=== PATIENT | female | born 1950 | race Hispanic/Latino ===

== ENCOUNTER 2018-02-14 00:49 | Emergency (ER) | payer OTHER ==
[2018-02-14] MEDS ORDERED: ACETAMINOPHEN EXTRA STRENGTH 500 MG TABLET ONE (01:14)
== END 2018-02-14 02:01 | disposition home or self-care (01) ==
LOC: EDH 00:49
DX: S09.8XXA Other specified injuries of head, initial encounter (principal); D32.9 Benign neoplasm of meninges, unspecified; R03.0 Elevated blood-pressure reading, without diagnosis of hypertension; E07.9 Disorder of thyroid, unspecified; W18.39XA Other fall on same level, initial encounter; Y93.89 Activity, other specified; Y92.89 Other specified places as the place of occurrence of the external cause; Y99.8 Other external cause status
CPT/HCPCS: 70450

== ENCOUNTER 2023-08-15 00:16 | Observation (INO) | payer OTHER ==
[~2023-08-15] VITALS: Ht 142.2 cm; Wt 47.0 kg
[2023-08-15] VITALS (28 sets, daily range): BP systolic 130–162; BP diastolic 57–82; PULSE 60–90; RESP 16–20; O2SAT 96–97
[2023-08-15 00:48] LABS: BASOPHILS # (AUTO) 0.04 K/uL (0.00-0.20); BASOPHILS % (AUTO) 0.3 % (0.0-5.0); EOSINOPHILS # (AUTO) 0.03 K/uL (0.00-0.70); EOSINOPHILS % (AUTO) 0.2 % (0.0-8.0); HEMATOCRIT 47.6 % (36-48); IMMATURE GRANULOCYTE ABSOLUTE 0.05 K/uL (0-1); LYMPHOCYTES # (AUTO) 0.5 K/uL (1.0-4.8); LYMPHOCYTES % (AUTO) 3.4 % (21.0-51.0); MEAN CORPUSCULAR HEMOGLOBIN 26.3 pg (27.0-33.0); MEAN CORPUSCULAR HGB CONC 31.9 g/dL (32.0-36.0); MEAN CORPUSCULAR VOLUME 82.4 fL (79-99); MONOCYTES # (AUTO) 0.5 K/uL (0.1-1.0); MONOCYTES % (AUTO) 3.5 % (3.0-13.0); NEUTROPHILS # (AUTO) 13.2 K/uL (1.8-7.7); NEUTROPHILS % (AUTO) 92.3 % (40.0-77.0); PLATELET COUNT (AUTO) 253 K/uL (130-400); RED BLOOD CELL COUNT(AUTO) 5.78 MIL/uL (4.00-5.50); RED CELL DISTRIBUTION WIDTH 14.9 % (11.0-15.5); WHITE BLOOD COUNT (AUTO) 14.3 K/uL (4.8-10.8)
[2023-08-15 00:58] LABS: CREATININE 0.9 mg/dL (0.5-1.5); POTASSIUM 4.2 mmol/L (3.5-5.1); WBC MORPHOLOGY CONSISTENT W/DIFF
[2023-08-15] MEDS ORDERED: 0.9%NACL 1000ML 2,000 ML IV ONE (01:00)
[2023-08-15] MEDS ORDERED: ONDANSETRON 4MG INJ IVP ONE (01:00)
[2023-08-15 01:03] LABS: BILIRUBIN,TOTAL 0.5 mg/dL (0.2-1.0); TOTAL PROTEIN, SERUM 8.2 g/dL (6.0-8.3)
[2023-08-15] MEDS ORDERED: IOHEXOL-350 75 ML VIAL IV ONE (01:09)
[2023-08-15] MEDS ORDERED: MORPHINE 2 MG SYG IVP ONE (02:30)
[2023-08-15] MEDS ORDERED: ZOSYN 3.375GM +NS 50ML IV ONE (02:30)
[2023-08-15 02:54] LABS: APPEARANCE,URINE CLEAR (CLEAR); BILIRUBIN,URINE NEGATIVE (NEGATIVE); COLOR,URINE LIGHT-YELLOW (YELLOW); GLUCOSE, URINE (UA) NEGATIVE (NEGATIVE); KETONES,URINE NEGATIVE (NEGATIVE); LEUKOCYTE ESTERASE ,URINE NEGATIVE Leu/uL (NEGATIVE); NITRATE,URINE 2+ (NEGATIVE); OCCULT BLOOD,URINE NEGATIVE (NEGATIVE); PH,URINE 6.5 (5.0-8.0); PROTEIN,URINE NEGATIVE (NEGATIVE); UROBILINOGEN,URINE 0.2 mg/dL (0.2-1.0)
[2023-08-15 02:56] LABS: ADD UA MICROSCOPIC YES
[2023-08-15 02:57] LABS: BACTERIA,URINE MOD /HPF (None Seen); MUCUS,URINE RARE LPF (None Seen); OTHER CASTS, URINE 1 /LPF (None Seen); SQUAMOUS EPITHELIAL CELL,UR RARE /HPF (0-2)
[2023-08-15] MEDS ORDERED: ACETAMINOPHEN 650 MG SUPPOSITORY RC PRN (04:00)
[2023-08-15] MEDS ORDERED: CLONIDINE HCL 0.1 MG TABLET PO PRN (04:00)
[2023-08-15] MEDS ORDERED: TEMAZEPAM 15 MG CAPSULE PO PRN (04:00)
[2023-08-15] MEDS ORDERED: HYDRALAZINE 20MG/ML VIAL IV PRN (04:00)
[2023-08-15] MEDS ORDERED: ONDANSETRON 4MG INJ IVP PRN ×2 (04:00→12:00)
[2023-08-15] MEDS ORDERED: MORPHINE 4 MG SYG IVP PRN (04:00)
[2023-08-15] MEDS ORDERED: LABETALOL 20MG SYG IV PRN (04:00)
[2023-08-15] MEDS ORDERED: ACETAMINOPHEN 325 MG TAB PO PRN (04:00)
[2023-08-15] MEDS: LACTATED RINGERS 1000ML 1,000 ML IV SCH ×3 (05:01→17:20)
[2023-08-15] MEDS: INSULIN HUMULIN R 100 UNIT/ML 3ML SQ SCH ×2 (06:06→11:30)
[2023-08-15 07:00] LABS: INR 0.94 (0.85-1.15); PROTHROMBIN TIME 10.9 SEC (9.6-11.6)
[2023-08-15] MEDS: ZOSYN 3.375GM +NS 50ML IV SCH ×2 (08:20→17:38)
[2023-08-15] MEDS ORDERED: LIDOCAINE PF 100MG/5ML (2%) SYRINGE 5ML ONE (10:41)
[2023-08-15] MEDS ORDERED: MIDAZOLAM HCL 1 MG/ML 2ML VIAL ONE (10:42)
[2023-08-15] MEDS ORDERED: FENTANYL CITRATE PF 50 MCG/1 ML 2ML VIAL ONE (10:42)
[2023-08-15] MEDS ORDERED: DEXAMETHASONE SOD PHOSPHATE 4 MG/ML 1ML VIAL ONE (10:42)
[2023-08-15] MEDS ORDERED: PROPOFOL 10 MG/ML 20ML VIAL IV ONE (10:42)
[2023-08-15] MEDS ORDERED: ROCURONIUM 10MG/1ML SYR 10 MG/ML ML ONE (10:42)
[2023-08-15] MEDS ORDERED: ONDANSETRON 4MG INJ ONE (10:43)
[2023-08-15] MEDS ORDERED: ROPIVACAINE 0.5% 5MG/ML 30ML ONE (10:46)
[2023-08-15] MEDS ORDERED: BUPIVACAINE/PF 0.25% 30ML VIAL IJ ONE ×2 (11:01→11:02)
[2023-08-15] MEDS ORDERED: GLYCOPYRROLATE 1 MG/5 ML SYRINGE ONE (11:32)
[2023-08-15] MEDS ORDERED: NEOSTIGMINE 5MG/5ML SYR IV ONE (11:32)
[2023-08-15] MEDS ORDERED: TRAM50TA4 PO (11:44)
[2023-08-15] MEDS ORDERED: HYDROCODONE/ACETAMINOPHEN 5/325 MG TAB PO PRN (12:00)
[2023-08-15] MEDS ORDERED: MORPHINE 2 MG SYG IV PRN (12:00)
[2023-08-15] MEDS ORDERED: BISACODYL 10 MG SUPP.RECT RC ONE (12:30)
[2023-08-15] MEDS ORDERED: POLYETHYLENE GLYCOL 3350 17 GM POWD.PACK PO ONE (12:45)
[2023-08-15] MEDS ORDERED: PRAV20TA4 PO (15:45)
[2023-08-15] MEDS ORDERED: LEVO50TA11 PO (15:45)
[2023-08-15] MEDS ORDERED: FAMOTIDINE 20MG VIAL IV SCH (21:00)
[2023-08-15] MEDS ORDERED: ATORVASTATIN 20 MG TABLET PO SCH (21:00)
[2023-08-16] MEDS: ZOSYN 3.375GM +NS 50ML IV SCH ×2 (01:29→08:44)
[2023-08-16] MEDS: LACTATED RINGERS 1000ML 1,000 ML IV SCH ×2 (01:30→06:40)
[2023-08-16 04:00] VITALS: BP 127/67; PULSE 66; RESP 18
[2023-08-16 04:37] LABS: BASOPHILS # (AUTO) 0.01 K/uL (0.00-0.20); BASOPHILS % (AUTO) 0.1 % (0.0-5.0); EOSINOPHILS # (AUTO) 0.01 K/uL (0.00-0.70); EOSINOPHILS % (AUTO) 0.1 % (0.0-8.0); HEMATOCRIT 36.8 % (36-48); IMMATURE GRANULOCYTE ABSOLUTE 0.07 K/uL (0-1); LYMPHOCYTES # (AUTO) 0.6 K/uL (1.0-4.8); LYMPHOCYTES % (AUTO) 6.2 % (21.0-51.0); MEAN CORPUSCULAR HEMOGLOBIN 26.3 pg (27.0-33.0); MEAN CORPUSCULAR HGB CONC 32.1 g/dL (32.0-36.0); MONOCYTES # (AUTO) 0.6 K/uL (0.1-1.0); MONOCYTES % (AUTO) 6.3 % (3.0-13.0); NEUTROPHILS # (AUTO) 8.5 K/uL (1.8-7.7); NEUTROPHILS % (AUTO) 86.6 % (40.0-77.0); PLATELET COUNT (AUTO) 189 K/uL (130-400); RED BLOOD CELL COUNT(AUTO) 4.49 MIL/uL (4.00-5.50); RED CELL DISTRIBUTION WIDTH 15.2 % (11.0-15.5); WHITE BLOOD COUNT (AUTO) 9.8 K/uL (4.8-10.8)
[2023-08-16 04:54] LABS: ALBUMIN 2.4 g/dL (3.5-5.0); BILIRUBIN,TOTAL 0.6 mg/dL (0.2-1.0); CREATININE 0.7 mg/dL (0.5-1.5); PHOSPHORUS 3.4 mg/dL (2.5-4.9); POTASSIUM 3.8 mmol/L (3.5-5.1); TOTAL PROTEIN, SERUM 5.8 g/dL (6.0-8.3)
[2023-08-16 05:17] LABS: SARS-CoV-2, RNA, NAAT NEGATIVE SARS CoV-2 (NEGATIVE)
[2023-08-16 05:22] LABS: INFLUENZA TYPE A Negative For Type A (NEGATIVE); INFLUENZA TYPE B Negative For Type B (NEGATIVE)
[2023-08-16] MEDS ORDERED: LEVOTHYROXINE 50 MCG TABLET PO SCH (06:30)
[2023-08-16 07:53] VITALS: BP 126/61; PULSE 69; RESP 17
[2023-08-16 08:00] VITALS: O2SAT 97
[2023-08-16] MEDS ORDERED: POLYETHYLENE GLYCOL 3350 17 GM POWD.PACK PO SCH (09:00)
== END 2023-08-16 12:45 | disposition home or self-care (01) ==
LOC: EDH 00:16 → EDHIP 02:19 → 4AH 03:30
PROVIDERS: ADMIT Internal Medicine Critical Care Medicine; ATTEND Internal Medicine Critical Care Medicine
DX: K40.30 Unilateral inguinal hernia, with obstruction, without gangrene, not specified as recurrent (principal); Z20.822 Contact with and (suspected) exposure to COVID-19; N39.0 Urinary tract infection, site not specified; N17.9 Acute kidney failure, unspecified; E86.0 Dehydration; E03.9 Hypothyroidism, unspecified; D72.829 Elevated white blood cell count, unspecified; E78.00 Pure hypercholesterolemia, unspecified; I10 Essential (primary) hypertension; R73.9 Hyperglycemia, unspecified; R11.2 Nausea with vomiting, unspecified
CPT/HCPCS: 49507; 96361; 96365; 96366 ×3; 96375; 82550; 84484; 80053 ×2; 83690; 85025 ×2; 85610; 86850; 86900; 86901; 87077; 87088; 87186; 82948; 81001; 36415 ×2; 88302; 71045; 74177; 99291; 93005; 83735; 84100; 87804 ×2; 87635; G0378 ×24; J7120; A4452; C1781; J3490 ×2; J3010; J2710; J2270; J7030; J0665 ×2; J2001; J2250; J2704; J2405 ×2; J2543 ×6; J1100; J2795; Q9967; A4930; A4223; A4222; A4216